=== PATIENT | female | born 1955 | race Caucasian/White ===

== ENCOUNTER 2019-01-20 11:58 | Emergency (ER) | payer MEDICARE, MEDICAID ==
[~2019-01-20] VITALS: Ht 154.9 cm; Wt 45.4 kg
[~2019-01-20 11:58] MED LIST: CYCL-10 PO; DOCU-144 PO; DOXE50CA4 PO; GABA-529 PO; IBUP-1969 PO; PARO30TA62 PO; TEMA15CA PO; TRAZ-219 PO
[2019-01-20 12:00] VITALS: BP_SYST 102
[2019-01-20] MEDS ORDERED: fentaNYL CITRATE/PF 100 MCG/2 ML AMP IM ONE (13:00)
[2019-01-20 13:40] VITALS: BP_SYST 102
== END 2019-01-20 13:40 | disposition home or self-care (01) ==
LOC: SED 11:58
DX: S42.292A Other displaced fracture of upper end of left humerus, initial encounter for closed fracture (principal); F32.9 Major depressive disorder, single episode, unspecified; I10 Essential (primary) hypertension; Z79.899 Other long term (current) drug therapy; W19.XXXA Unspecified fall, initial encounter; Y93.89 Activity, other specified; Y92.89 Other specified places as the place of occurrence of the external cause; Y99.8 Other external cause status
CPT/HCPCS: 29105; 73060; 96372; 99283; J3010

== ENCOUNTER 2019-01-22 16:25 | Emergency (ER) | payer MEDICARE, MEDICAID ==
[~2019-01-22] VITALS: Ht 162.6 cm; Wt 45.4 kg
[2019-01-22 16:25] VITALS: BP_SYST 101
[2019-01-22 17:15] LABS: BASOPHILS % (AUTO) 0.2 % (0.0-2.0); EOSINOPHILS # (AUTO) 0.1 K/uL (0.0-0.4); HEMATOCRIT 34.2 % (36-48); HEMOGLOBIN 11.3 g/dL (12.0-16.0); LYMPHOCYTES # (AUTO) 0.7 K/uL (1.0-5.5); LYMPHOCYTES % (AUTO) 10.7 % (20.5-51.5); MEAN CORPUSCULAR HEMOGLOBIN 38 pg (27-31); MEAN CORPUSCULAR HGB CONC 33 % (32-36); MEAN CORPUSCULAR VOLUME 114 fL (79.0-98.0); MONOCYTES # (AUTO) 0.3 K/uL (0.0-1.0); MONOCYTES % (AUTO) 4.5 % (1.7-9.3); NEUTROPHILS # (AUTO) 5.3 K/uL (1.8-7.7); NEUTROPHILS % (AUTO) 83.6 % (40.0-70.0); PLATELET COUNT (AUTO) 181 K/uL (130-430); RED BLOOD CELL COUNT(AUTO) 3.01 MIL/uL (4.2-6.2); RED CELL DISTRIBUTION WIDTH 14.5 % (9.0-15.0); WHITE BLOOD COUNT (AUTO) 6.4 K/uL (4.8-10.8)
[2019-01-22 17:24] LABS: CREATININE 0.63 mg/dL (0.55-1.30); POTASSIUM 3.4 mmol/L (3.5-5.1)
[2019-01-22 17:29] LABS: ALBUMIN 2.5 g/dL (3.4-4.8); TOTAL BILIRUBIN 0.7 mg/dL (0.0-1.0)
[2019-01-22] MEDS ORDERED: MORPHINE 4 MG/ML INJ. SYRINGE IVP ONE (19:15)
[2019-01-22 19:51] LABS: BILIRUBIN,URINE NEGATIVE (NEGATIVE); BLOOD, URINE NEGATIVE (NEGATIVE); CLARITY/URINE CLEAR (CLEAR); COLOR,URINE YELLOW (YELLOW); GLUCOSE,URINE NEGATIVE (NEGATIVE); KETONES,URINE NEGATIVE (NEGATIVE); LEUKOCYTE ESTERASE ,URINE TRACE (NEGATIVE); NITRITE, URINE NEGATIVE (NEGATIVE); PH,URINE 6.5 (5.0-8.0); PROTEIN URINE NEGATIVE (NEGATIVE); UROBILINOGEN,URINE 0.2 (0.2-1.0)
[2019-01-22 19:58] LABS: BACTERIA,URINE FEW /HPF (None Seen); RBC,URINE 0-3 /HPF (0-3)
[2019-01-22] MEDS ORDERED: MORPHINE 4 MG/ML INJ. SYRINGE IM ONE (20:00)
[2019-01-22 20:04] LABS: BARBITURATE, URINE NEGATIVE (NEG <=200); BENZODIAZEPINE, URINE POSITIVE (NEG <=150); CANNABINOID, URINE NEGATIVE (NEG <=50); COCAINE, URINE NEGATIVE (NEG <=150); METHAMPHETAMINES SCREEN,URINE NEGATIVE (NEG <=500); OPIATE, URINE POSITIVE (NEG <=100); PHENCYCLIDINE SCREEN,URINE NEGATIVE (NEG <=25); URINE AMPHETAMINE NEGATIVE (NEG <=500); URINE METHADONE NEGATIVE (NEG <=200); URINE OXYCODONE SCREEN NEGATIVE (NEG <=100); URINE PROPOXYPHENE SCREEN NEGATIVE (NEG <=300)
[2019-01-22 20:05] LABS: UR TRICYCLIC ANTIDEPRESSANTS POSITIVE (NEG <=300)
[2019-01-22 20:35] VITALS: BP_SYST 113
== END 2019-01-22 20:35 | disposition home or self-care (01) ==
LOC: SED 16:25
DX: S42.352A Displaced comminuted fracture of shaft of humerus, left arm, initial encounter for closed fracture (principal); S51.811A Laceration without foreign body of right forearm, initial encounter; F32.9 Major depressive disorder, single episode, unspecified; F41.9 Anxiety disorder, unspecified; F17.200 Nicotine dependence, unspecified, uncomplicated; R03.0 Elevated blood-pressure reading, without diagnosis of hypertension; Z79.899 Other long term (current) drug therapy; Z71.6 Tobacco abuse counseling; W19.XXXA Unspecified fall, initial encounter; Y93.89 Activity, other specified; Y92.89 Other specified places as the place of occurrence of the external cause; Y99.8 Other external cause status
CPT/HCPCS: 36415; 70450; 71045; 73060; 73090; 80053; 80307; 81000; 84484; 85025; 85610; 85730; 93005; 96372; 99284; G0482; J2270

== ENCOUNTER 2019-05-30 14:37 | Emergency (ER) | payer MEDICARE, MEDICAID ==
[~2019-05-30] VITALS: Ht 152.4 cm; Wt 67.1 kg
[2019-05-30 14:40] VITALS: BP_SYST 103
--- NOTE | 2019-05-30 14:46 | NUR ---
Placed in room 06 . Placed on cardiac monitor technician, blood pressure machine and pulse oximeter. To gown for exam. Side rails up.
--- NOTE | 2019-05-30 14:50 | NUR ---
NATE Johnson at bedside examining patient.
[2019-05-30] MEDS ORDERED: ASPIRIN 325 MG TABLET PO ONE (15:00)
--- NOTE | 2019-05-30 15:00 | NUR ---
Patient brought in by daughter, c/o tightness in chest, AAOx4. Patient drinks alcohol every day. last drink yesterday approximately 3 glasses of vodka. Patient denies nausea, vomiting, diarrhea. Patient has loss of appetitie. Will continue to monitor.
[2019-05-30 15:37] LABS: BASOPHILS % (AUTO) 0.6 % (0.0-2.0); EOSINOPHILS # (AUTO) 0.1 K/uL (0.0-0.4); HEMATOCRIT 37.3 % (36-48); HEMOGLOBIN 12.4 g/dL (12.0-16.0); LYMPHOCYTES # (AUTO) 1.2 K/uL (1.0-5.5); LYMPHOCYTES % (AUTO) 26.6 % (20.5-51.5); MEAN CORPUSCULAR HEMOGLOBIN 36 pg (27-31); MEAN CORPUSCULAR HGB CONC 33 % (32-36); MEAN CORPUSCULAR VOLUME 109 fL (79.0-98.0); MONOCYTES # (AUTO) 0.3 K/uL (0.0-1.0); MONOCYTES % (AUTO) 6.1 % (1.7-9.3); NEUTROPHILS # (AUTO) 2.8 K/uL (1.8-7.7); NEUTROPHILS % (AUTO) 63.7 % (40.0-70.0); PLATELET COUNT (AUTO) 151 K/uL (130-430); RED BLOOD CELL COUNT(AUTO) 3.41 MIL/uL (4.2-6.2); RED CELL DISTRIBUTION WIDTH 13.5 % (9.0-15.0); WHITE BLOOD COUNT (AUTO) 4.4 K/uL (4.8-10.8)
[2019-05-30 15:51] LABS: ALANINE AMINOTRANSFERASE 18 U/L (12-78); ALBUMIN 3.2 g/dL (3.4-4.8); ANION GAP 14 (5-15); ASPARTATE AMINOTRANSFERASE 26 U/L (10-37); CALCIUM 8.9 mg/dL (8.4-11.0); CHLORIDE 113 mmol/L (98-107); CREATININE 0.97 mg/dL (0.55-1.30); GLUCOSE 85 mg/dL (70-99); POTASSIUM 3.7 mmol/L (3.5-5.1); SODIUM SERUM 145 mmol/L (136-145); TOTAL BILIRUBIN 0.3 mg/dL (0.0-1.0); UREA NITROGEN, BLOOD 12 mg/dL (8-21)
[2019-05-30 15:52] LABS: GFR AFRICAN AMERICAN 74 mL/min (>90)
--- NOTE | 2019-05-30 16:00 | NUR ---
patient in bed, daughter at bedside. no s/s of acute distress noted. will continue to monitor.
[2019-05-30 16:07] LABS: BILIRUBIN,URINE NEGATIVE (NEGATIVE); BLOOD, URINE NEGATIVE (NEGATIVE); CLARITY/URINE CLEAR (CLEAR); COLOR,URINE YELLOW (YELLOW); GLUCOSE,URINE NEGATIVE (NEGATIVE); KETONES,URINE NEGATIVE (NEGATIVE); LEUKOCYTE ESTERASE ,URINE NEGATIVE (NEGATIVE); NITRITE, URINE NEGATIVE (NEGATIVE); PROTEIN URINE NEGATIVE (NEGATIVE); UROBILINOGEN,URINE 0.2 (0.2-1.0)
[2019-05-30 17:03] VITALS: BP_SYST 100
--- NOTE | 2019-05-30 17:03 | NUR ---
Patient given written and verbal discharge instructions and verbalizes understanding. ER MD discussed with patient the results and treatment provided. Patient in stable condition. ID arm band removed. IV catheter removed intact and dressing applied, no active bleeding. Rx of miralax powder given. Patient educated on pain management and to follow up with PMD. Pain Scale 0/10. Opportunity for questions provided and answered. Medication side effect fact sheet provided.
== END 2019-05-30 17:03 | disposition home or self-care (01) ==
LOC: SED 14:37
DX: F41.9 Anxiety disorder, unspecified (principal); K59.00 Constipation, unspecified; F10.99 Alcohol use, unspecified with unspecified alcohol-induced disorder; F32.9 Major depressive disorder, single episode, unspecified; Z79.899 Other long term (current) drug therapy
CPT/HCPCS: 36415; 71045; 80053; 81003; 83690-TC; 84484; 85025; 93005; 99284

== ENCOUNTER 2022-02-16 15:46 | Emergency (ER) | payer OTHER, MEDICAID ==
[~2022-02-16] VITALS: Ht 154.9 cm; Wt 54.4 kg
[~2022-02-16 15:46] MED LIST changes: -CYCL-10 PO; +CYCL10TA24 PO; -TRAZ-219 PO; +TRAZ-251 PO
[2022-02-16 15:47] VITALS: BP_SYST 113
[2022-02-16] MEDS ORDERED: NAPR-690 PO (15:59)
[2022-02-16] MEDS ORDERED: ACETAMINOPHEN 500 MG TABLET PO ONE (16:00)
[2022-02-16] MEDS ORDERED: BACITRACIN ZINC 15 GM TOPICAL OINTMENT TP ONE (16:00)
[2022-02-16] MEDS ORDERED: BACITRACIN 1 GM OINT TP ONE (16:08)
[2022-02-16] MEDS ORDERED: traMADol HCL HCL 50 MG TABLET (ULTRAM) PO ONE (16:15)
== END 2022-02-16 16:13 | disposition home or self-care (01) ==
LOC: SED 15:46
DX: S01.01XA Laceration without foreign body of scalp, initial encounter (principal); Z79.899 Other long term (current) drug therapy; W01.198A Fall on same level from slipping, tripping and stumbling with subsequent striking against other object, initial encounter; Y93.89 Activity, other specified; Y92.89 Other specified places as the place of occurrence of the external cause; Y99.8 Other external cause status
CPT/HCPCS: 99283

== ENCOUNTER 2022-02-24 12:19 | Emergency (ER) | payer OTHER, MEDICAID ==
[~2022-02-24] VITALS: Ht 154.9 cm; Wt 54.4 kg
[~2022-02-24 12:19] MED LIST changes: +NAPR-690 PO
[2022-02-24 13:01] VITALS: BP_SYST 110
--- NOTE | 2022-02-24 13:12 | NUR ---
Patient to ER bed H1 to gown for evaluation. Side rails up.
--- NOTE | 2022-02-24 13:13 | NUR ---
PT CAME IN FROM HOME FOR SUTURE REMOVAL FROM BACK OF HEAD, AREA C/D/I, HEALING, PLACED ON 02/16/22, DENIES PAIN, STATES THE AREA HAS BEEN ITCHY. PT IS AMBULATORY, AAOX4, VSS
--- NOTE | 2022-02-24 14:29 | NUR ---
PT DISCHARGED GIVEN ACI. ALL QUESTIONS ANSWERED. VSS. NAD NOTED. WRIST BAND REMOVED. PT AMBULATED TO EXIT. END OF CARE.
[2022-02-24 14:30] VITALS: BP_SYST 134
== END 2022-02-24 14:28 | disposition home or self-care (01) ==
LOC: SED 12:19
DX: S01.01XD Laceration without foreign body of scalp, subsequent encounter (principal); X58.XXXA Exposure to other specified factors, initial encounter; Y93.89 Activity, other specified; Y92.89 Other specified places as the place of occurrence of the external cause; Y99.8 Other external cause status
CPT/HCPCS: 99281